=== PATIENT | female | born 1965 ===

== ENCOUNTER 2017-08-17 22:22 | Emergency (ER) | payer OTHER ==
[2017-08-17 23:03] LABS: Basophils % (Auto) 0.5 % (0.0-1.8); Eosinophils % (Auto) 0.5 % (0.0-4.3); Hematocrit 37.7 % (30.3-42.9); Hemoglobin 11.7 gm/dl (10.1-14.3); Lymphocytes # (Auto) 1.7 K/mm3 (1.2-5.4); Lymphocytes % (Auto) 27.3 % (13.4-35.0); Mean Corpuscular HGB Conc 31 % (30-34); Monocytes # (Auto) 0.5 K/mm3 (0.0-0.8); Monocytes % (Auto) 8.1 % (0.0-7.3); Platelet Count 279 K/mm3 (140-440); Red Blood Count 5.51 M/mm3 (3.65-5.03); Red Cell Distribution Width 16.4 % (13.2-15.2)
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
[2017-08-17 23:30] LABS: Calcium 9.1 mg/dL (8.4-10.2)
[2017-08-17 23:36] LABS: Mean Corpuscular Hemoglobin 21 pg (28-32); Mean Corpuscular Volume 69 fl (79-97)
[2017-08-18 04:06] LABS: Bilirubin,Urine NEG (Negative); Blood,Urine NEG (Negative); Color,Urine Yellow (Yellow); Mucus,Urine FEW /HPF; Protein,Urine <15 mg/dL mg/dL (Negative); Urobilinogen,Urine < 2.0 mg/dL (<2.0)
[2017-08-18 04:14] LABS: Amphetamine Screen,Urine PRESUMPTIVE NEGATIVE; Benzodiazepines Screen,Urine PRESUMPTIVE NEGATIVE; Cannabinoid Screen,Urine PRESUMPTIVE NEGATIVE; Cocaine Screen,Urine PRESUMPTIVE NEGATIVE; Methadone Screen,Urine PRESUMPTIVE NEGATIVE; Opiate Screen,Urine PRESUMPTIVE NEGATIVE
[2017-08-18] MEDS ORDERED: GEODON IM ONE (09:46)
[2017-08-18] MEDS ORDERED: ATIVAN IM ONE (09:46)
[2017-08-18] MEDS ORDERED: GEODON IM PRN (10:05)
[2017-08-18] MEDS: GEODON PO SCH ×3 (11:00→23:12)
[2017-08-19 09:45] LABS: Alanine Aminotransferase 13 units/L (7-56); Lipase 19 units/L (13-60)
[2017-08-19] MEDS: HCTZ PO SCH (10:47)
[2017-08-19] MEDS: GEODON PO SCH ×2 (10:47→21:48)
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
[2017-08-20] MEDS: HCTZ PO SCH (10:50)
[2017-08-20] MEDS: GEODON PO SCH ×2 (10:50→21:41)
--- NOTE | 2017-08-20 14:56 | Progress Note ---
Subjective - Reason for Consult Consult date: 08/20/17 Reason for consult: Psychiatry Follow-up - Chief Complaint Chief complaint: "I am okay" 51 y.o. AA female presenting to the ER for acute psychosis. Today the patient is calm and cooperative during the assessment. She stated that she didn't mean to say she was yesterday when she arrived to the ER. She stated that she wanted to leave "[place]" where she currently reside. She stated that she would like help with finding another residence when discharged. She stated that she can follow up with [facility] ([facility]) for outpatient psy services. She denies SI/HI's and AVH's. She denies any side effects of her medications. Mental Status Exam - Vital signs Last Vital Signs Temp 97.5 F L 08/19/17 22:04 Pulse 69 08/19/17 22:04 Resp 16 08/19/17 22:04 BP 147/92 08/19/17 22:04 Pulse Ox 98 08/19/17 22:04 - Exam Narrative exam: MSE: Appearance: calm, cooperative Behavior: regular eye contact Speech: regular rate and tone Mood: "okay" Affect: congruent to mood Thought Process: more organized Thought Content: denies SI/HI's and AVH's Motor Activity: ambulatory Cognition: A/O x 3 Insight: fair Judgment: fair Assessment and Plan Impression: Unspecified Psychosis. Today the patient is calm during the assessment. UDS is negative DDx: Bipolar DO, R/O Schizophrenia Recommendation/Plan: Rescind 1013. Continue Geodon 40 mg PO BID for psychosis and Depakote 500 mg PO BID for mood. Discussed possible metabolic side effects of Geodon with patient. The patient can follow up with [facility] ( [facility]) or [facility] for outpatient psy services.
[2017-08-21] MEDS: HCTZ PO SCH (10:18)
[2017-08-21] MEDS: GEODON PO SCH (10:18)
--- NOTE | 2017-08-21 17:24 | Emergency Department Report ---
HPI - General Chief Complaint: OB/Uterine Contractions Time Seen by Provider: 08/17/17 23:09 - HPI HPI: I went to evaluate the patient disease uses to go home. She has been cleared by psychiatry. Vitals and lab work are unremarkable. Patient denies hallucinations at this point time. Denies SI, HI, AVH. Patient was given refills of her Geodon and Depakote to go home with. She is cleared for discharge. ED Past Medical Hx - Past Medical History Previous Medical History?: Yes Hx Psychiatric Treatment: Yes - Surgical History Past Surgical History?: No - Social History Smoking Status: Current Every Day Smoker Substance Use Type: Marijuana - Medications Home Medications: Home Medications Medication Instructions Recorded Confirmed Last Taken Type Divalproex ER [Depakote ER] 500 mg PO BID #40 tablet 08/21/17 Unknown Rx Ziprasidone [Geodon] 40 mg PO BID #40 capsule 08/21/17 Unknown Rx ED Review of Systems ROS: Stated complaint: LABOR/UNCONFIRMED Other details as noted in HPI Constitutional: denies: chills, fever Respiratory: denies: cough, shortness of breath Cardiovascular: denies: chest pain, palpitations Gastrointestinal: denies: abdominal pain, nausea, vomiting, diarrhea, constipation, hematemesis Musculoskeletal: denies: back pain Physical Exam - Physical Exam Vital Signs: Vital Signs 08/17/17 08/18/17 08/18/17 22:37 01:15 06:30 Temperature 98 F 98.6 F Pulse Rate 90 66 69 Respiratory 16 16 16 Rate Blood Pressure 144/84 Blood Pressure 121/64 132/64 [Left] O2 Sat by Pulse 100 98 98 Oximetry 08/18/17 08/18/17 08/18/17 10:00 10:53 20:00 Temperature 98.3 F Pulse Rate 78 67 Respiratory 16 16 18 Rate Blood Pressure Blood Pressure 133/88 123/87 [Left] O2 Sat by Pulse 98 97 98 Oximetry 08/18/17 08/19/17 08/19/17 23:17 09:58 22:04 Temperature 98.6 F 98.6 F 97.5 F L Pulse Rate 79 81 69 Respiratory 17 18 16 Rate Blood Pressure Blood Pressure 131/77 154/88 147/92 [Left] O2 Sat by Pulse 99 94 98 Oximetry 08/20/17 08/20/17 08/20/17 10:00 15:02 20:28 Temperature 97.5 F L 97.5 F L Pulse Rate 72 98 H Respiratory 18 18 18 Rate Blood Pressure Blood Pressure 144/88 144/88 [Left] O2 Sat by Pulse 98 98 Oximetry 08/21/17 07:15 Temperature 98.0 F Pulse Rate 96 H Respiratory 16 Rate Blood Pressure Blood Pressure 104/72 [Left] O2 Sat by Pulse 96 Oximetry ED Course Vital Signs 08/17/17 08/18/17 08/18/17 22:37 01:15 06:30 Temperature 98 F 98.6 F Pulse Rate 90 66 69 Respiratory 16 16 16 Rate Blood Pressure 144/84 Blood Pressure 121/64 132/64 [Left] O2 Sat by Pulse 100 98 98 Oximetry 08/18/17 08/18/17 08/18/17 10:00 10:53 20:00 Temperature 98.3 F Pulse Rate 78 67 Respiratory 16 16 18 Rate Blood Pressure Blood Pressure 133/88 123/87 [Left] O2 Sat by Pulse 98 97 98 Oximetry 08/18/17 08/19/17 08/19/17 23:17 09:58 22:04 Temperature 98.6 F 98.6 F 97.5 F L Pulse Rate 79 81 69 Respiratory 17 18 16 Rate Blood Pressure Blood Pressure 131/77 154/88 147/92 [Left] O2 Sat by Pulse 99 94 98 Oximetry 08/20/17 08/20/17 08/20/17 10:00 15:02 20:28 Temperature 97.5 F L 97.5 F L Pulse Rate 72 98 H Respiratory 18 18 18 Rate Blood Pressure Blood Pressure 144/88 144/88 [Left] O2 Sat by Pulse 98 98 Oximetry 08/21/17 07:15 Temperature 98.0 F Pulse Rate 96 H Respiratory 16 Rate Blood Pressure Blood Pressure 104/72 [Left] O2 Sat by Pulse 96 Oximetry ED Medical Decision Making - Lab Data Result diagrams: 08/17/17 22:54 08/17/17 22:54 Critical care attestation.: If time is entered above; I have spent that time in minutes in the direct care of this critically ill patient, excluding procedure time. ED Disposition Clinical Impression: Schizophrenia Disposition: DC-01 TO HOME OR SELFCARE Is pt being admited?: No Condition: Stable Instructions: Schizophrenia (ED), Suicide Prevention for Adults (ED) Additional Instructions: Please follow up with your psychiatrist for further evaluation of your schizophrenia. Prescriptions: Divalproex ER [Depakote ER] 500 mg PO BID #40 tablet Ziprasidone [Geodon] 40 mg PO BID #40 capsule Referrals: PRIMARY CARE, [Primary Care Provider] - 3-5 Days
[2017-08-21 18:07] VITALS: BP 131/80
== END 2017-08-21 17:34 | disposition home or self-care (01) ==
LOC: EEVIPCON 22:22 → ED 22:22
DX: O99.341 Other mental disorders complicating pregnancy, first trimester (principal); F20.0 Paranoid schizophrenia; F17.200 Nicotine dependence, unspecified, uncomplicated; F12.90 Cannabis use, unspecified, uncomplicated; Z88.5 Allergy status to narcotic agent; Z88.8 Allergy status to other drugs, medicaments and biological substances; Z91.048 Other nonmedicinal substance allergy status; Z3A.09 9 weeks gestation of pregnancy
CPT/HCPCS: 36415; 80048; 80164; 80307; 81001; 82150; 83690; 84075; 84450; 84460; 84703; 85025; 96372; 99285; J2060; J3486